=== PATIENT | female | born 1955 | race Caucasian/White ===

== ENCOUNTER 2017-05-14 15:11 | Emergency (ER) | payer OTHER ==
[2017-05-14 15:26] VITALS: TEMP 98; BMI 27.1
--- NOTE | 2017-05-14 15:29 | PDOC ---
Rapid Medical Evaluation Time Seen by Provider: 05/14/17 15:21 Medical Evaluation: Allergies Allergy/AdvReac Type Severity Reaction Status Date / Time No Known Allergies Allergy Verified 05/14/17 15:21 05/14/17 15:21 The patient presents with a chief complaint of: Headache, nausea, epigastric pain, diarrhea, chest tightness for two days. I have performed a brief in-person evaluation of this patient; Pertinent physical exam findings: ambulatory, in no respiratory distress, RRR, CTAB I have ordered the following: CBC, CMP, PT/INR, Lipase, Trop, EKG, UA, UC, zofran The patient will proceed to the ED for further evaluation. Discharge Disposition - Referrals Referrals: Finesse Yo MD [Primary Care Provider] - - Patient Instructions - Post Discharge Activity
[2017-05-14] MEDS ORDERED: ONDANSETRON *ODT* 4 MG TABLET SL ONE (15:31)
[2017-05-14] MEDS ORDERED: ONDANSETRON *ODT* 4 MG TABLET ONE (15:51)
[2017-05-14 15:58] LABS: BASO % 0.5 % (0-2.0); EOS % 2.3 % (0-4.5); HEMOGLOBIN 13.2 GM/dL (10.7-15.3); LYMPH % 27.5 % (8-40); MCH 29.7 pg (25.7-33.7); MCHC 33.1 g/dl (32.0-36.0); MEAN CELL VOLUME 89.7 fl (80-96); MEAN PLT VOLUME 9.9 fl (7.5-11.1); MONO % 6.3 % (3.8-10.2); NEUT % 63.4 % (42.8-82.8); PLATELET COUNT 228 K/MM3 (134-434); RBC 4.46 M/mm3 (3.60-5.2); RDW 13.7 % (11.6-15.6); WHITE BLOOD COUNT 6.7 K/mm3 (4.0-10.0)
[2017-05-14 16:09] LABS: INR 1.09 (0.82-1.09); PROTHROMBIN TIME (PATIENT) 12.3 SEC (9.98-11.88)
[2017-05-14 16:19] LABS: ALBUMIN 3.7 g/dl (3.4-5.0); ALK PHOS 128 U/L (45-117); ANION GAP 5 (8-16); BILIRUBIN,TOTAL 0.3 mg/dL (0.2-1.0); BLOOD UREA NITROGEN 7 mg/dL (7-18); CALCIUM 8.5 mg/dL (8.5-10.1); CHLORIDE 107 mmol/L (98-107); CO2 29 mmol/L (21-32); CREATININE 0.7 mg/dL (0.55-1.02); GLUCOSE,RANDOM 102 mg/dL (74-106); LIPASE 70 U/L (73-393); POTASSIUM 4.1 mmol/L (3.5-5.1); SGOT/AST 15 U/L (15-37); SGPT/ALT 14 U/L (12-78); SODIUM 141 mmol/L (136-145); TOT PROT 7.5 g/dl (6.4-8.2)
--- NOTE | 2017-05-14 16:22 | PDOC ---
Attending Attestation - Resident Resident Name: Elliot Earl - HPI HPI: 05/18/17 09:54 Pt presents to the ED complaining of sore throat, along with headache that appears to be chronic. Sore throat has been persistent for two days, is not accompanied by fever. Patient is able to tolerate PO. Denies nausea and vomiting. Patient is also complaining of mild frontal headache that is not changed from her chronic headache and epigastric pain that feels similar to her chronic gastritis. - Physicial Exam PE: 05/18/17 09:56 Agree with resident exam. Throat has no erythema, but tonsiliths are present bilaterally. Abdomen is soft, non tender and non distended. PAtient is alert and oriented and is neurologically intact. - Medical Decision Making 05/18/17 09:57 Pt presents to the ED complaining mainly of sorethroat. + tonsiliths on exam. Patient instructed to try frequent gargling to remove them and given referral to ENT. Will discharge home.
--- NOTE | 2017-05-14 17:02 | PDOC ---
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 The patient states that 2 days ago, she developed a headache, sore throat, and epigastric abdominal pain. The headache is diffuse, "tight", constant with a gradual onset, and not alleviated or exacerbated by any factors. She states that she's had this headache worked up 3 months ago without any finding for the cause of her headache. She also states she's had throat pain for 2 days and noticed something white on her throat when she looked with a light. She also admits to epigastric abdominal pain which does not radiate and does not feel like her gastritis. She denies any fever, chills, CP, SOB, vomiting but states she is mildly nauseous and has diarrhea which she thinks may be causing her abdominal pain. Past History - Past Medical History Allergies/Adverse Reactions: Allergies Allergy/AdvReac Type Severity Reaction Status Date / Time No Known Allergies Allergy Verified 05/14/17 15:21 Home Medications: Ambulatory Orders Omeprazole [Prilosec (RX)] 20 mg PO DAILY 05/17/12 Cancer: Yes (H/O LEFT BREAST; CERVICAL) COPD: No - Suicide/Smoking/Psychosocial Hx Smoking Status: No Smoking History: Former smoker Have you smoked in the past 12 months: No Number of Cigarettes Smoked Daily: 0 Information on smoking cessation initiated: No Review of Systems - Review of Systems Able to Perform ROS?: Yes Comments:: 05/14/17 17:03 GENERAL/CONSTITUTIONAL: No fever or chills. No weakness. HEAD, EYES, EARS, NOSE AND THROAT: Positive for sore throat. No change in vision. No ear pain or discharge. CARDIOVASCULAR: No chest pain, palpitations, or lightheadedness. RESPIRATORY: No cough, wheezing, shortness of breath, or hemoptysis. GASTROINTESTINAL: Positive for abdominal pain. No nausea, vomiting, diarrhea, or constipation. GENITOURINARY: No dysuria, frequency, hematuria, or change in urination. MUSCULOSKELETAL: No joint or muscle swelling or pain. No neck or back pain. SKIN: No rash or lesions. NEUROLOGIC: Positive for headache. No numbness, tingling, weakness, loss of consciousness, or change in strength/sensation. ENDOCRINE: No increased thirst. No abnormal weight change. HEMATOLOGIC/LYMPHATIC: No anemia, easy bleeding, or history of blood clots. ALLERGIC/IMMUNOLOGIC: No hives or skin allergy. Is the patient limited Congolese proficient: No *Physical Exam - Vital Signs Last Vital Signs Temp Pulse Resp BP Pulse Ox 98 F 80 17 133/80 98 05/14/17 15:21 05/14/17 15:21 05/14/17 15:21 05/14/17 15:21 05/14/17 15:21 - Physical Exam Comments: 05/14/17 17:05 GENERAL: Well developed, well nourished. Awake and alert. No acute distress. HEENT: Normocephalic, atraumatic. Hearing grossly normal. Moist mucous membranes. PERRLA, EOMI. No conjunctival pallor. Sclera are non-icteric. Oropharnyx is nonerythematous, nonexudative but have tonsilliths present bilaterally. NECK: Supple. Full ROM. No JVD. No lymphadenopathy. CARDIOVASCULAR: Regular rate and rhythm. No murmurs, rubs, or gallops. PULMONARY: No evidence of respiratory distress. Lungs clear to auscultation bilaterally. No wheezing, rales or rhonchi. ABDOMINAL: Soft. Non-tender. Non-distended. No rebound or guarding. GENITOURINARY: No CVA tenderness bilaterally. MUSCULOSKELETAL: Normal range of motion at all joints. No bony deformities or tenderness. EXTREMITIES: No cyanosis. No clubbing. No edema. No calf tenderness. SKIN: Warm and dry. Normal capillary refill. No rashes. No jaundice. NEUROLOGICAL: Alert, awake, appropriate. Cranial nerves 2-12 intact. No deficits to light touch and temperature in face, upper extremities and lower extremities. No motor deficits in the in face, upper extremities and lower extremities. Finger to nose normal bilaterally. Normal speech. Gait is normal without ataxia. PSYCHIATRIC: Cooperative. Good eye contact. Appropriate mood and affect. ED Treatment Course - LABORATORY CBC & Chemistry Diagram: 05/14/17 15:48 05/14/17 15:48 - ADDITIONAL ORDERS Additional order review: Laboratory Results 05/14/17 05/14/17 05/14/17 15:48 15:48 15:48 PT with INR 12.30 H INR 1.09 Sodium 141 Potassium 4.1 Chloride 107 Carbon Dioxide 29 Anion Gap 5 L BUN 7 Creatinine 0.7 Creat Clearance w eGFR > 60 Random Glucose 102 Calcium 8.5 Total Bilirubin 0.3 AST 15 ALT 14 Alkaline Phosphatase 128 H Creatine Kinase 150 Creatine Kinase Index 0.6 CK-MB (CK-2) < 1.000 Troponin I < 0.02 Total Protein 7.5 Albumin 3.7 Lipase 70 L 05/14/17 15:48 RBC 4.46 MCV 89.7 MCHC 33.1 RDW 13.7 MPV 9.9 Neutrophils % 63.4 Lymphocytes % 27.5 Monocytes % 6.3 Eosinophils % 2.3 Basophils % 0.5 - Medications Given in the ED: ED Medications Discontinued Medications Generic Name Dose Route Start Last Admin Trade Name Freq PRN Reason Stop Dose Admin Ondansetron HCl 4 mg 05/14/17 15:31 05/14/17 15:52 Zofran Odt - SL 05/14/17 15:32 4 mg ONCE ONE Administration Medical Decision Making - Medical Decision Making 05/14/17 17:06 The patient is a 61F with a PMH of gastritis who presents with a headache, sore throat, and abdominal pain. Labs sent by E. Pending imaging. Lipase negative. Pt has had this headache worked up extensively and states it feels like her normal headaches. Although much lower on my differential, will r/o ACS with EKG and 1 troponin. 05/14/17 19:23 Labs all WNL. Rapid strep negative. Pt agrees for d/c home with PCP f/u. *DC/Admit/Observation/Transfer Diagnosis at time of Disposition: Headache Qualifiers: Headache type: unspecified Headache chronicity pattern: unspecified pattern Intractability: intractable Qualified Code(s): R51 - Headache - Discharge Dispostion Disposition: HOME Condition at time of disposition: Stable Admit: No - Referrals Referrals: Finesse Yo MD [Primary Care Provider] - - Patient Instructions Printed Discharge Instructions: DI for Headache Additional Instructions: Please return to the ER if symptoms persist, worsen, or new symptoms arise. Please follow up with your primary care physician in 2-3 days. Please return to the ER if you have any signs or symptoms of chest pain, shortness of breath, uncontrollable fever, chills, nausea, vomiting, numbness, tingling, or weakness in any part of your body, changes in vision, or slurred speech. - Post Discharge Activity
[2017-05-14 17:19] LABS: URINE APPEARANCE CLEAR; URINE BILIRUBIN NEGATIVE (NEGATIVE); URINE BLOOD 1+ (NEGATIVE); URINE COLOR YELLOW; URINE GLUCOSE (UA) NEGATIVE (NEGATIVE); URINE KETONE NEGATIVE (NEGATIVE); URINE LEUK ESTERASE NEGATIVE (NEGATIVE); URINE NITRITE NEGATIVE (NEGATIVE); URINE PROTEIN NEGATIVE (NEGATIVE); URINE UROBILINOGEN NEGATIVE mg/dL (0.2-1.0)
[2017-05-14 17:23] LABS: EPI CELLS RARE /HPF (FEW); URINE HYALINE CAST 1 /lpf; URINE MUCUS RARE
[2017-05-14 19:45] VITALS: BP 132/78; PULSE 78
--- NOTE | 2017-05-19 13:29 | EKG ---
Test Reason : Blood Pressure : / mmHG Vent. Rate : 069 BPM Atrial Rate : 069 BPM P-R Int : 122 ms QRS Dur : 118 ms QT Int : 424 ms P-R-T Axes : 052 -68 013 degrees QTc Int : 454 ms NORMAL SINUS RHYTHM POSSIBLE LEFT ATRIAL ENLARGEMENT PULMONARY DISEASE PATTERN RIGHT BUNDLE BRANCH BLOCK LEFT ANTERIOR FASCICULAR BLOCK BIFASCICULAR BLOCK ABNORMAL ECG WHEN COMPARED WITH ECG OF 03-OCT-2010 13:39, (RBBB AND LEFT ANTERIOR FASCICULAR BLOCK) IS NOW PRESENT Confirmed by MD Mina, Finesse ([id number]) on 05/19/2017 1:29:27 PM Referred By: Confirmed By:Finesse Enirquez MD
== END 2017-05-14 19:30 | disposition home or self-care (01) ==
LOC: JER 15:11
DX: R51 Headache (principal)
CPT/HCPCS: 36415; 71046-TC-FY; 80053; 81003; 81015; 82550; 82553; 83690; 84484; 85025; 85610; 87070; 87086; 87430; 93005; 93010; 99283-25

== ENCOUNTER 2021-02-01 19:35 | Emergency (ER) | payer MEDICARE, OTHER ==
[2021-02-01 19:47] VITALS: BP 117/70; PULSE 68; TEMP 98.2; BMI 27.6
== END 2021-02-01 23:28 | disposition home or self-care (01) ==
LOC: FER 19:35
DX: S00.11XA Contusion of right eyelid and periocular area, initial encounter (principal); S16.1XXA Strain of muscle, fascia and tendon at neck level, initial encounter; S40.011A Contusion of right shoulder, initial encounter; S20.211A Contusion of right front wall of thorax, initial encounter; W01.198A Fall on same level from slipping, tripping and stumbling with subsequent striking against other object, initial encounter
CPT/HCPCS: 70450-TC; 70486-TC; 71101-TC-RT-FY; 72125-TC; 73030-TC-RT-FY; 73130-TC-RT-FY; 99284-25